=== PATIENT | male | born 1975 | race Two or more races ===

== ENCOUNTER 2017-05-25 08:24 | Inpatient (IN) | payer OTHER ==
[2017-05-25 10:25] VITALS: BMI 22.5
--- NOTE | 2017-05-25 12:30 | HP ---
CIWA Score - CIWA Score Nausea/Vomitin Muscle Tremors: 3 Anxiety: 3 Agitation: 3 Paroxysmal Sweats: 2 Orientation: 0-Oriented Tacttile Disturbances: 2-Mild Itch/Numbness/Burn Auditory Disturbances: 2-Mild Harshness/Frighten Visual Disturbances: 2-Mild Sensitivity Headache: 2-Mild CIWA-Ar Total Score: 22 Admission ROS BHS - HPI Chief Complaint: i need help to stop drinking alcohol and marijuana Allergies/Adverse Reactions: Allergies Allergy/AdvReac Type Severity Reaction Status Date / Time No Known Allergies Allergy Verified 05/25/17 10:55 History of Present Illness: this 41 years old male with alcohol and marijuana dependence,seeking detox,last treatment 03/15 [facility] nicotine dependence no significant period of sobriety Exam Limitations: No Limitations - Ebola screening Have you been sick,other than usual withdrawal symptoms: No - Review of Systems Constitutional: Loss of Appetite, Malaise, Night Sweats, Changes in sleep, Weakness, Unintentional Wgt. Loss EENT: reports: Nose Congestion Respiratory: reports: No Symptoms reported Cardiac: reports: No Symptoms Reported GI: reports: Diarrhea, Nausea, Vomiting, Abdominal cramping : reports: No Symptoms Reported Musculoskeletal: reports: Back Pain, Muscle Pain Integumentary: reports: Dryness Neuro: reports: Headache, Tremors Endocrine: reports: No Symptoms Reported Hematology: reports: No Symptoms Reported Psychiatric: reports: No Sypmtoms Reported, Judgement Intact, Mood/Affect Appropiate, Orientated x3 Patient History - Patient Medical History Hx Asthma: No Hx Chronic Obstructive Pulmonary Disease (COPD): No Hx Cardiac Disorders: No Hx Hypertension: No Hx Hypercholesterolemia: No HX Cerebrovascular Accident: No Hx Seizures: No Hx Dementia: No Hx Diabetes: Yes (Type II no meds.) Hx Gastrointestinal Disorders: No Hx Liver Disease: No Hx Genitourinary Disorders: No Hx Sexually Transmitted Disorders: No Hx Renal Disease (ESRD): No Hx Thyroid Disease: No Hx Human Immunodeficiency Virus (HIV): No (last 03/15 negative) Hx Hepatitis C: No Hx Depression: No Hx Suicide Attempt: No Hx Bipolar Disorder: No Hx Schizophrenia: No Other Medical History: no suicidal,no homicidal - Patient Surgical History Past Surgical History: Yes Hx Appendectomy: Yes (at age 14yrs) - PPD History Previous Implant?: Yes Documented Results: Negative w/o proof Implanted On Prior [facility] Admission?: No PPD to be Administered?: Yes - Smoking Cessation Smoking history: Current every day smoker Have you smoked in the past 12 months: Yes Aproximately how many cigarettes per day: 20 Hx Chewing Tobacco Use: No Initiated information on smoking cessation: Yes 'Breaking Loose' booklet given: 05/25/17 - Substance & Tx. History Hx Alcohol Use: Yes Hx Substance Use: Yes Substance Use Type: Alcohol, Marijuana Hx Substance Use Treatment: Yes ([facility] 03/15 not completed) - Substances Abused Alcohol Route: Oral Frequency: Daily Amount used: 2 PINTS VODKA Age of first use: 26 Date of Last Use: 05/24/17 Marijuana/Hashish Route: Smoking Frequency: Daily Amount used: 2 BLUNTS Age of first use: 31 Date of Last Use: 05/24/17 Family Disease History - Family Disease History Family Disease History: Other: Father (alcohol,) Admission Physical Exam BHS - Vital Signs Vital Signs: Vital Signs - 24 hr 05/25/17 10:18 Temperature 96.9 F L Pulse Rate 62 Respiratory 20 Rate Blood Pressure 112/66 - Physical General Appearance: Yes: Moderate Distress, Tremorous, Irritable, Sweating, Anxious HEENTM: Yes: Normocephalic, JANA, Pharynx Normal Respiratory: Yes: Lungs Clear, Normal Breath Sounds, No Respiratory Distress Neck: Yes: Within Normal Limits, Supple, Trachea in good position Breast: Yes: Within Normal Limits Cardiology: Yes: Within Normal Limits, Regular Rhythm, Regular Rate, S1, S2 Abdominal: Yes: Within Normal Limits, Normal Bowel Sounds, Non Tender, Flat, Soft Genitourinary: Yes: Within Normal Limits Back: Yes: Muscle Spasm Musculoskeletal: Yes: full range of Motion, Back pain, Muscle Pain Extremities: Yes: Within Normal Limits, Normal Range of Motion, Tremors Neurological: Yes: quiller runner II-XII NML intact, Alert, Motor Strength 5/5 Integumentary: Yes: Dry Lymphatic: Yes: Within Normal Limits - Diagnostic (1) Alcohol dependence with uncomplicated withdrawal Current Visit: Yes Status: Acute (2) Cannabis dependence Current Visit: Yes Status: Acute (3) Syncope Current Visit: Yes Status: Acute (4) DM2 (diabetes mellitus, type 2) Current Visit: Yes Status: Acute (5) Weight loss Current Visit: Yes Status: Acute (6) Nicotine dependence Current Visit: Yes Status: Acute Cleared for Admission [facility] - Detox or Rehab [facility] Level of Care: Medically Managed Detox Regimen/Protocol: Librium [facility] Breath Alcohol Content Breath Alcohol Content: 0 Urine Drug Screen - Results Drug Screen Negative: No Urine Drug Screen Results: THC-Marijuana
[2017-05-25] MEDS ORDERED: LOPERAMIDE HCL 2 MG CAPSULE PO PRN (12:40)
[2017-05-25] MEDS ORDERED: IBUPROFEN 400 MG TABLET (FP) PO PRN (12:40)
[2017-05-25] MEDS ORDERED: chlordiazePOXIDE HCL 25 MG CAPSULE PO PRN (12:40)
[2017-05-25] MEDS ORDERED: ACETAMINOPHEN 325 MG TABLET (FP) PO PRN (12:40)
[2017-05-25] MEDS ORDERED: P-EPHED 60MG/TRIPROLIDI 2.5MG TABLET PO PRN (12:40)
[2017-05-25] MEDS ORDERED: guaiFENesin/D-METHORPHAN HB 10 ML UNIT-DOSE CUPS PO PRN (12:40)
[2017-05-25] MEDS ORDERED: MAGNESIUM CITRATE 300 ML BOTTLE PO PRN (12:40)
[2017-05-25] MEDS ORDERED: MAG HYDROX/AL HYDROX/SIMETH 30 ML UNIT-DOSE CUP PO PRN (12:40)
[2017-05-25] MEDS ORDERED: MENTHOL/PHENOL 1 EACH UD MM PRN (12:40)
[2017-05-25] MEDS ORDERED: MAGNESIUM HYDROX 2400MG/30ML ORAL SUSPENSION 30 ML CUP PO PRN (12:40)
[2017-05-25] MEDS ORDERED: hydrOXYzine PAMOATE 50 MG CAPSULE (FP) PO PRN (12:40)
[2017-05-25] MEDS ORDERED: chlordiazePOXIDE HCL 25 MG CAPSULE PO ONE (13:45)
[2017-05-25 16:56] LABS: HIV 1 & 2 AB NEGATIVE; HIV 1 AGp24 NEGATIVE
[2017-05-25] MEDS: chlordiazePOXIDE HCL 25 MG CAPSULE PO SCH ×2 (17:22→22:20)
[2017-05-25 18:55] LABS: URINE APPEARANCE SLCLOUDY; URINE BILIRUBIN NEGATIVE (NEGATIVE); URINE BLOOD NEGATIVE (NEGATIVE); URINE COLOR YELLOW; URINE GLUCOSE (UA) 1+ (NEGATIVE); URINE KETONE NEGATIVE (NEGATIVE); URINE NITRITE NEGATIVE (NEGATIVE); URINE PROTEIN NEGATIVE (NEGATIVE); URINE UROBILINOGEN NEGATIVE mg/dL (0.2-1.0)
[2017-05-25 21:30] LABS: URINE LEUK ESTERASE Negative (NEGATIVE)
[2017-05-25] MEDS: THIAMINE HCL 100 MG TABLET (FP) PO SCH (22:20)
[2017-05-25] MEDS: diphenhydrAMINE HCL 50 MG CAPSULE PO PRN (22:21)
[2017-05-26] MEDS: chlordiazePOXIDE HCL 25 MG CAPSULE PO SCH ×4 (05:45→22:08)
[2017-05-26] MEDS: PRENATAL VITAMINS W/ FOLIC ACID TABLET (FP) PO SCH (10:24)
[2017-05-26 11:04] LABS: MCH 31.5 pg (25.7-33.7); MEAN CELL VOLUME 92.8 fl (80-96); MEAN PLT VOLUME 8.8 fl (7.5-11.1); PLATELET COUNT 240 K/MM3 (134-434); RDW 13.4 % (11.9-15.9); WHITE BLOOD COUNT 9.1 K/mm3 (4.0-10.0)
[2017-05-26 11:25] LABS: ALBUMIN 4.1 g/dl (3.4-5.0); ALK PHOS 84 U/L (45-117); ANION GAP 9 (8-16); BILIRUBIN,TOTAL 0.7 mg/dL (0.2-1.0); CALCIUM 9.2 mg/dL (8.5-10.1); CO2 29 mmol/L (21-32); CREATININE 0.6 mg/dL (0.7-1.3); GLUCOSE,RANDOM 85 mg/dL (74-106); SGOT/AST 23 U/L (15-37); SGPT/ALT 41 U/L (12-78); TOT PROT 7.2 g/dl (6.4-8.2)
--- NOTE | 2017-05-26 16:47 | PN ---
S CIWA - CIWA Score Nausea/Vomitin-No Nausea/No Vomiting Muscle Tremors: 4-Moderate,w/Arms Extend Anxiety: 3 Agitation: 3 Paroxysmal Sweats: 3 Orientation: 0-Oriented Tacttile Disturbances: 2-Mild Itch/Numbness/Burn Auditory Disturbances: 0-None Visual Disturbances: 3-Moderate Sensitivity Headache: 0-None Present CIWA-Ar Total Score: 18 S Progress Note (SOAP) Subjective: Tremors, Sweating, Body Aches. Objective: PT. A & O X 3. NO ACUTE DISTRESS. 05/26/17 16:48 Vital Signs Temperature 97.8 F 05/26/17 14:31 Pulse Rate 76 05/26/17 14:31 Respiratory Rate 18 05/26/17 14:31 Blood Pressure 116/73 05/26/17 14:31 O2 Sat by Pulse Oximetry (%) Laboratory Tests 05/25/17 05/25/17 05/25/17 11:04 11:40 17:30 WBC RBC Hgb Hct MCV MCH MCHC RDW Plt Count MPV Sodium Potassium Chloride Carbon Dioxide Anion Gap BUN Creatinine Creat Clearance w eGFR POC Glucometer 138 Random Glucose Calcium Total Bilirubin AST ALT Alkaline Phosphatase Total Protein Albumin Urine Color Yellow Urine Appearance Slcloudy Urine pH 6.0 Ur Specific [place] 1.020 Urine Protein Negative Urine Glucose (UA) 1+ H Urine Ketones Negative Urine Blood Negative Urine Nitrite Negative Urine Bilirubin Negative Urine Urobilinogen Negative Ur Leukocyte Esterase Negative RPR Titer HIV 1&2 Antibody Screen Negative HIV P24 Antigen Negative 05/26/17 05/26/17 05/26/17 05:46 06:08 06:08 WBC 9.1 RBC 4.77 Hgb 15.0 Hct 44.3 MCV 92.8 MCH 31.5 MCHC 34.0 RDW 13.4 Plt Count 240 MPV 8.8 Sodium 141 Potassium 4.0 Chloride 103 Carbon Dioxide 29 Anion Gap 9 BUN 15 Creatinine 0.6 L Creat Clearance w eGFR > 60 POC Glucometer 126 Random Glucose 85 Calcium 9.2 Total Bilirubin 0.7 AST 23 ALT 41 Alkaline Phosphatase 84 Total Protein 7.2 Albumin 4.1 Urine Color Urine Appearance Urine pH Ur Specific [place] Urine Protein Urine Glucose (UA) Urine Ketones Urine Blood Urine Nitrite Urine Bilirubin Urine Urobilinogen Ur Leukocyte Esterase RPR Titer HIV 1&2 Antibody Screen HIV P24 Antigen 05/26/17 06:08 WBC RBC Hgb Hct MCV MCH MCHC RDW Plt Count MPV Sodium Potassium Chloride Carbon Dioxide Anion Gap BUN Creatinine Creat Clearance w eGFR POC Glucometer Random Glucose Calcium Total Bilirubin AST ALT Alkaline Phosphatase Total Protein Albumin Urine Color Urine Appearance Urine pH Ur Specific [place] Urine Protein Urine Glucose (UA) Urine Ketones Urine Blood Urine Nitrite Urine Bilirubin Urine Urobilinogen Ur Leukocyte Esterase RPR Titer Nonreactive HIV 1&2 Antibody Screen HIV P24 Antigen LABS NOTED. Assessment: 05/26/17 16:48 WITHDRAWAL SYMPTOMS. Plan: CONTINUE DETOX.
[2017-05-26] MEDS: THIAMINE HCL 100 MG TABLET (FP) PO SCH (22:08)
[2017-05-26] MEDS: diphenhydrAMINE HCL 50 MG CAPSULE PO PRN (22:08)
[2017-05-27] MEDS: chlordiazePOXIDE HCL 25 MG CAPSULE PO SCH ×2 (05:57→10:18)
--- NOTE | 2017-05-27 09:11 | EKG ---
Test Reason : Blood Pressure : / mmHG Vent. Rate : 072 BPM Atrial Rate : 072 BPM P-R Int : 144 ms QRS Dur : 098 ms QT Int : 392 ms P-R-T Axes : 039 077 055 degrees QTc Int : 429 ms NORMAL SINUS RHYTHM NORMAL ECG NO PREVIOUS ECGS AVAILABLE Confirmed by JAVY BLANCO, EMANI ([id number]) on 05/27/2017 9:10:59 AM Referred By: Tho MILTON Confirmed By:EAMNI PALAFOX MD
[2017-05-27] MEDS: PRENATAL VITAMINS W/ FOLIC ACID TABLET (FP) PO SCH (10:18)
--- NOTE | 2017-05-27 16:40 | PN ---
S CIWA - CIWA Score Nausea/Vomitin Muscle Tremors: 4-Moderate,w/Arms Extend Anxiety: 4-Mod. Anxious/Guarded Agitation: 4-Moderately Restless Paroxysmal Sweats: 4-Forehead w/Sweat Beads Orientation: 0-Oriented Tacttile Disturbances: 0-None Auditory Disturbances: 0-None Visual Disturbances: 0-None Headache: 2-Mild CIWA-Ar Total Score: 20 BHS Progress Note (SOAP) Subjective: Sweating, body aches, headache, anxious Objective: 05/27/17 16:38 Last Vital Signs Temp Pulse Resp BP Pulse Ox 98.7 F 83 18 118/82 05/27/17 12:56 05/27/17 12:56 05/27/17 12:56 05/27/17 12:56 Laboratory Tests 05/25/17 05/25/17 05/25/17 11:04 11:40 17:30 WBC RBC Hgb Hct MCV MCH MCHC RDW Plt Count MPV Sodium Potassium Chloride Carbon Dioxide Anion Gap BUN Creatinine Creat Clearance w eGFR POC Glucometer 138 Random Glucose Calcium Total Bilirubin AST ALT Alkaline Phosphatase Total Protein Albumin Urine Color Yellow Urine Appearance Slcloudy Urine pH 6.0 Ur Specific [place] 1.020 Urine Protein Negative Urine Glucose (UA) 1+ H Urine Ketones Negative Urine Blood Negative Urine Nitrite Negative Urine Bilirubin Negative Urine Urobilinogen Negative Ur Leukocyte Esterase Negative RPR Titer HIV 1&2 Antibody Screen Negative HIV P24 Antigen Negative 05/26/17 05/26/17 05/26/17 05:46 06:08 06:08 WBC 9.1 RBC 4.77 Hgb 15.0 Hct 44.3 MCV 92.8 MCH 31.5 MCHC 34.0 RDW 13.4 Plt Count 240 MPV 8.8 Sodium 141 Potassium 4.0 Chloride 103 Carbon Dioxide 29 Anion Gap 9 BUN 15 Creatinine 0.6 L Creat Clearance w eGFR > 60 POC Glucometer 126 Random Glucose 85 Calcium 9.2 Total Bilirubin 0.7 AST 23 ALT 41 Alkaline Phosphatase 84 Total Protein 7.2 Albumin 4.1 Urine Color Urine Appearance Urine pH Ur Specific [place] Urine Protein Urine Glucose (UA) Urine Ketones Urine Blood Urine Nitrite Urine Bilirubin Urine Urobilinogen Ur Leukocyte Esterase RPR Titer HIV 1&2 Antibody Screen HIV P24 Antigen 05/26/17 05/27/17 05/27/17 06:08 05:58 16:19 WBC RBC Hgb Hct MCV MCH MCHC RDW Plt Count MPV Sodium Potassium Chloride Carbon Dioxide Anion Gap BUN Creatinine Creat Clearance w eGFR POC Glucometer 149 183 Random Glucose Calcium Total Bilirubin AST ALT Alkaline Phosphatase Total Protein Albumin Urine Color Urine Appearance Urine pH Ur Specific [place] Urine Protein Urine Glucose (UA) Urine Ketones Urine Blood Urine Nitrite Urine Bilirubin Urine Urobilinogen Ur Leukocyte Esterase RPR Titer Nonreactive HIV 1&2 Antibody Screen HIV P24 Antigen Labs noted: finger stick 183>>149>>126; UA 1+ glucose Assessment: 05/27/17 16:38 Withdrawal symptoms Noted with hyperglycemia and glycosuria Plan: Continue detox Hyperglycemia and glycosuria secondary to DMT2 (patient reports history of DMT2 but not on medication): continue diabetic diet, start insulin novolog sliding scale coverage, encouraged to drink lots of water, stat metformin 500mg PO bid ( first dose today), follow up with your PCP post discharge for management.
[2017-05-27] MEDS ORDERED: metFORMIN HCL 500 MG TABLET (FP) PO ONE (16:44)
[2017-05-27] MEDS: chlordiazePOXIDE 5 MG CAPSULE PO SCH ×2 (17:23→22:10)
[2017-05-27] MEDS: diphenhydrAMINE HCL 50 MG CAPSULE PO PRN (22:09)
[2017-05-27] MEDS: THIAMINE HCL 100 MG TABLET (FP) PO SCH (22:09)
[2017-05-28] MEDS: chlordiazePOXIDE 5 MG CAPSULE PO SCH (05:29)
[2017-05-28] MEDS ORDERED: metFORMIN HCL 500 MG TABLET (FP) PO SCH (07:00)
[2017-05-28] MEDS ORDERED: INSULIN SLIDING SCALE (NOVOLOG) 1 VIAL SQ SCH (07:00)
[2017-05-28 07:12] VITALS: BP 109/63; PULSE 67; TEMP 97
--- NOTE | 2017-05-28 09:02 | DS ---
[facility] Detox Discharge Summary Admission Date: 05/25/17 Discharge Date: 05/28/17 - History Present History: Alcohol Dependence, Cannabis Dependence Additional Comments: DETOX COMPLETED. ALERT O X 3. NAD. PT TO FOLLOW UP WITH PMD FOR MEDICAL MANAGEMENT. Pertinent Past History: HX DM - Physical Exam Results Vital Signs: Vital Signs Temperature 97.0 F L 05/28/17 07:11 Pulse Rate 67 05/28/17 07:11 Respiratory Rate 18 05/28/17 07:11 Blood Pressure 109/63 05/28/17 07:11 O2 Sat by Pulse Oximetry (%) Pertinent Admission Physical Exam Findings: Vital Signs Temperature 97.0 F L 05/28/17 07:11 Pulse Rate 67 05/28/17 07:11 Respiratory Rate 18 05/28/17 07:11 Blood Pressure 109/63 05/28/17 07:11 O2 Sat by Pulse Oximetry (%) Laboratory Last Values WBC 9.1 K/mm3 (4.0-10.0) 05/26/17 06:08 RBC 4.77 M/mm3 (4.00-5.60) 05/26/17 06:08 Hgb 15.0 GM/dL (11.7-16.9) 05/26/17 06:08 Hct 44.3 % (35.4-49) 05/26/17 06:08 MCV 92.8 fl (80-96) 05/26/17 06:08 MCH 31.5 pg (25.7-33.7) 05/26/17 06:08 MCHC 34.0 g/dl (32.0-35.9) 05/26/17 06:08 RDW 13.4 % (11.9-15.9) 05/26/17 06:08 Plt Count 240 K/MM3 (134-434) 05/26/17 06:08 MPV 8.8 fl (7.5-11.1) 05/26/17 06:08 Sodium 141 mmol/L (136-145) 05/26/17 06:08 Potassium 4.0 mmol/L (3.5-5.1) 05/26/17 06:08 Chloride 103 mmol/L (98-107) 05/26/17 06:08 Carbon Dioxide 29 mmol/L (21-32) 05/26/17 06:08 Anion Gap 9 (8-16) 05/26/17 06:08 BUN 15 mg/dL (7-18) 05/26/17 06:08 Creatinine 0.6 mg/dL (0.7-1.3) L 05/26/17 06:08 Creat Clearance w eGFR > 60 (>60) 05/26/17 06:08 POC Glucometer 150 UNITS (()) 05/28/17 05:28 Random Glucose 85 mg/dL (74-106) 05/26/17 06:08 Calcium 9.2 mg/dL (8.5-10.1) 05/26/17 06:08 Total Bilirubin 0.7 mg/dL (0.2-1.0) 05/26/17 06:08 AST 23 U/L (15-37) 05/26/17 06:08 ALT 41 U/L (12-78) 05/26/17 06:08 Alkaline Phosphatase 84 U/L (45-117) 05/26/17 06:08 Total Protein 7.2 g/dl (6.4-8.2) 05/26/17 06:08 Albumin 4.1 g/dl (3.4-5.0) 05/26/17 06:08 Urine Color Yellow 05/25/17 17:30 Urine Appearance Slcloudy 05/25/17 17:30 Urine pH 6.0 (5.0-8.0) 05/25/17 17:30 Ur Specific [place] 1.020 (1.005-1.025) 05/25/17 17:30 Urine Protein Negative (NEGATIVE) 05/25/17 17:30 Urine Glucose (UA) 1+ (NEGATIVE) H 05/25/17 17:30 Urine Ketones Negative (NEGATIVE) 05/25/17 17:30 Urine Blood Negative (NEGATIVE) 05/25/17 17:30 Urine Nitrite Negative (NEGATIVE) 05/25/17 17:30 Urine Bilirubin Negative (NEGATIVE) 05/25/17 17:30 Urine Urobilinogen Negative mg/dL (0.2-1.0) 05/25/17 17:30 Ur Leukocyte Esterase Negative (NEGATIVE) 05/25/17 17:30 RPR Titer Nonreactive (NONREACTIVE) 05/26/17 06:08 HIV 1&2 Antibody Screen Negative 05/25/17 11:40 HIV P24 Antigen Negative 05/25/17 11:40 - Treatment Hospital Course: Detox Protocol Followed, Detoxed Safely, Responded well, Discharged Condition Good - Medication Discharge Medications: Ambulatory Orders NK [No Known Home Medication] 05/25/17 - AMA Did Patient Leave Against Medical Advice: No
[2017-05-28] MEDS ORDERED: chlordiazePOXIDE HCL 10 MG CAPSULE PO SCH ×2 (11:00→17:00)
== END 2017-05-28 09:20 | disposition home or self-care (01) | DRG 775 ==
LOC: YASAS 08:24 → Y3N 13:04
PROVIDERS: ADMIT Internal Medicine; ATTEND Internal Medicine
PROC: HZ2ZZZZ Detoxification Services for Substance Abuse Treatment (ICD-10-PCS; principal; 2017-05-25)
DX: F10.230 Alcohol dependence with withdrawal, uncomplicated (principal); F12.20 Cannabis dependence, uncomplicated; F17.210 Nicotine dependence, cigarettes, uncomplicated; E11.9 Type 2 diabetes mellitus without complications; R55 Syncope and collapse; R63.4 Abnormal weight loss; Z68.22 Body mass index [BMI] 22.0-22.9, adult
CPT/HCPCS: 36415; 80053; 81003; 85027; 86593; 87389; 93005; 93010